=== PATIENT | female | born 1995 | race Caucasian/White ===

== ENCOUNTER 2017-02-05 06:02 | Day surgery (SDC) | payer OTHER ==
--- NOTE | 2017-02-04 13:28 | Short Stay Summary ---
Short Stay Documentation Date of service: 02/05/17 Narrative H&P: 21-year-old female with chronic otitis media and cholesteatoma right ear for mastoidectomy. Lifelong history of bilateral otitis media. Previous left mastoidectomy at age 7. Severe bilateral conductive hearing loss. Patient has been reassessed/reevaluated/re-examined. H&P has been reviewed. No interval changes.0803.02/05/17 - History Past Medical History: No medical history Past Surgical History: No surgical history (left mastoidectomy age7) Social history: no significant social history - Allergies and Medications Current Medications: Allergies No Known Allergies Allergy (Unverified 01/30/17 15:44) Home Medications Medication Instructions Recorded Confirmed Last Taken Type No Known Home Medications [No 01/30/17 01/30/17 Unknown History Reported Home Medications] - Physical exam General appearance: no acute distress Integumentary: no rash HEENT: Other (microscopic ear examination:Left ear: Satisfactory mastoid cavity with no evidence of infectionRight ear: Large central perforation with attic cholesteatoma. Erythema in the scutum and along the posterior canal wall. Slight purulent discharge in the facial recess.) Lungs: Clear to auscultation Breasts: deferred Heart: Regular rate, No murmurs Gastrointestinal: normoactive bowel sounds Female Genitourinary: deferred Rectal Exam: deferred Extremities: pulses intact, No edema Neurological: Normal gait, Normal speech - Brief post op/procedure progress note Date of procedure: 02/05/17 Pre-op diagnosis: chronic otitis media with cholesteatoma right ear Post-op diagnosis: same Procedure: Radical mastoidectomy Under satisfactory general endotracheal anesthesia the right ear was prepped and draped in a sterile fashion. Subcutaneous injection of 2% Xylocaine 1-60, 000 adrenaline was placed in the postauricular sulcus and around the external meatus. Approximately 4 mL was utilized. Examination was performed. There was a dimple anterior to the base of the helix just above the tragus (possible first branchial cleft cyst). There was no evidence of infection. Examination of the external auditory canal was normal . There was atelectasis of the entire posterior eardrum with adherence to the promontory and oval window. There was no evidence of long process of the incus or stapes superstructure. Again cholesteatoma was noted in the oval window but there was no evidence of fistula. An attic cholesteatoma was visible. The anterior drum remnant demonstrated extensive tympanosclerosis. A tympanomeatal flap incision was performed. Vascular strip flap was performed based inferiorly. An endaural incision was carried out. The mastoid periosteum was incised and elevated. An atticotomy from within was initiated. Upon gradual exenteration of the epitympanum a cholesteatoma was noted filling the entire epitympanum and extending into the mastoid cavity. Progressive exenteration using the Richard ototome was carried out. Again a large cholesteatoma was noted in the epitympanum. There was only a slight residual amount of body of the incus with no evidence of long or short process. An extended amount of the head of the malleus was eroded as well. The cog was exenterated and cholesteatoma debris was removed from the anterior epitympanum. Progressive dissection directed posteriorly demonstrated additional cholesteatoma in the aditus and extending into the mastoid cavity. Exenteration was carried out until all structures were visible for postoperative cleaning. The facial recess was taken down quite flush. Because of the severe collapse of the drum and adherence to the oval window it was determined that reconstruction would not be feasible. The drum remnant and the remnant of the long process of the malleus and the malleus tendon were excised and removed. Anteriorly the eustachian tube orifice was patent with no evidence of cholesteatoma extending into it. Ultimately a satisfactory mastoid cavity was obtained. A evonne morteza was used to smooth the cavity. Closure was performed. Gelfoam pledgets saturated in Ciprodex solution were used to pack the middle ear and mastoid. The endaural incision was closed loosely with 5-0 nylon suture. A mastoid pressure dressing was applied. The operation was terminated. The patient was taken to the recovery room having tolerated the procedure well. Postoperatively the right facial nerve function normally. Bleeding throughout the procedure was minimal. Anesthesia: GETA Findings: Extensive cholesteatoma involving the entire attic and extending into the mastoid cavity. Extensive atelectasis of the drum remnant collapsed in the entire posterior middle ear with erosion and absence of most of the incus and the entire stapes superstructure. Cholesteatoma sac was adherent to the oval window and was left undisturbed. There was no evidence of perilymph fistula. Surgeon: ANTIONE CHAMBERS Estimated blood loss: minimal Pathology: list (cholesteatoma, granulation tissue, eroded incus) Specimen disposition: to lab Condition: stable - Hospital course Hospital course: Vital signs stable and normal. Right facial nerve intact. Dressing dry.0122.5
[~2017-02-05 06:02] MED LIST: ANTIBIOTIC OINT TP ONE; NACL 0.9% 1000 ML 1,000 ML IV SCH; PEPCID PO NR; VERSED IV NR
[2017-02-05] MEDS ORDERED: NACL BACTERIOSTATIC INFILTRATI ONE (06:59)
[2017-02-05] MEDS ORDERED: SUBLIMAZE IV PRN (07:07)
[2017-02-05] MEDS ORDERED: DILAUDID IV PRN (07:07)
[2017-02-05] MEDS ORDERED: TRANSDERM-SCOP TD NR (07:18)
[2017-02-05] MEDS ORDERED: ADRENALIN ONE ×2 (07:35→07:38)
[2017-02-05] MEDS ORDERED: DILAUDID ONE (07:35)
[2017-02-05] MEDS ORDERED: DIPRIVAN 10 MG/ML IV ONE (07:35)
[2017-02-05] MEDS ORDERED: XYLOCAINE MPF 2% ONE (07:35)
[2017-02-05] MEDS ORDERED: DECADRON ONE (07:35)
[2017-02-05] MEDS ORDERED: ANTIBIOTIC OINT TP ONE ×2 (07:36→11:40)
[2017-02-05] MEDS ORDERED: CIPRODEX ONE (07:36)
[2017-02-05] MEDS ORDERED: GELFOAM TP ONE ×2 (07:37→08:46)
[2017-02-05] MEDS ORDERED: XYLOCAINE 2% INFILTRATI ONE ×2 (07:37→08:46)
[2017-02-05] MEDS ORDERED: SUBLIMAZE ONE (07:39)
[2017-02-05] MEDS ORDERED: ZOFRAN IV PRN (08:00)
[2017-02-05] MEDS ORDERED: AFRIN ONE (08:14)
[2017-02-05] MEDS ORDERED: ADRENALIN IV ONE ×2 (08:46→09:00)
[2017-02-05] MEDS ORDERED: CIPRODEX AD ONE (08:46)
[2017-02-05] MEDS ORDERED: NACL 0.9% IR ONE ×2 (08:50→09:00)
[2017-02-05] MEDS ORDERED: ARTIFICIAL TEARS OPHTH OINT ONE (11:50)
[2017-02-05] MEDS ORDERED: MORPHINE PO PRN (12:44)
[2017-02-05] MEDS ORDERED: TYLENOL PO PRN (12:44)
[2017-02-05 13:54] VITALS: BP 103/76
[2017-02-05] MEDS ORDERED: D5LR 1,000 ML IV SCH (14:00)
== END 2017-02-05 15:19 | disposition home or self-care (01) ==
LOC: OR 06:02
PROVIDERS: ATTEND Otolaryngology
DX: H66.91 Otitis media, unspecified, right ear (principal); H71.01 Cholesteatoma of attic, right ear; H74.01 Tympanosclerosis, right ear; H73.891 Other specified disorders of tympanic membrane, right ear
CPT/HCPCS: 36415; 69511; 81025; 84703; 88304; 88311; A4217; A4649; J0171; J1100; J1170; J2250; J2405; J2704; J3010; J7030